=== PATIENT | female | born 1960 | race Caucasian/White ===

== ENCOUNTER → 2022-10-26 13:08 | Outpatient (CLI) | payer OTHER, SELFPAY ==
--- NOTE | 2022-10-26 13:12 | DI.RAD.S_ITS ---
PROCEDURE: XR LUMBAR SPINE MIN 4V INDICATIONS: BACK PAIN TECHNIQUE: 5 views of the lumbar spine acquired, including flexion and extension views. COMPARISON: None. FINDINGS: Bones: There is leftward spinal curvature centered at L3. Five lumbar type vertebral bodies are seen. Trace retrolisthesis of L1 on L2. Grade 1 anterolisthesis, about 8 mm of L5 on S1. Limited evaluation on oblique views, due to overlapping bowel gas. There is a suspected pars defect on L5. Overall vertebral body heights are well maintained. Overall moderate degenerative changes. Soft tissues: Increased colonic stool burden. IMPRESSION: Overall moderate spondylotic changes, with disc space height loss, facet arthropathy, and osteophytes. L5 pars defects and 8 mm of anterolisthesis of L5 on S1. If there is high concern for further derangement, consider MRI evaluation. Dictated by: Ramsey Starks M.D. on 10/26/2022 at 13:35 Approved by: Ramsey Starks M.D. on 10/26/2022 at 13:37
== END ==
PROVIDERS: PCP Registered Nurse; Referring Provider Physical Medicine & Rehabilitation; Visit Provider Physical Medicine & Rehabilitation
DX: M47.816 Spondylosis without myelopathy or radiculopathy, lumbar region (principal); M43.17 Spondylolisthesis, lumbosacral region; M54.9 Dorsalgia, unspecified
CPT/HCPCS: 72110

== ENCOUNTER 2023-03-04 09:47 | Outpatient (CLI) | payer OTHER, SELFPAY ==
[2023-03-04] VITALS (10 sets, daily range): BP systolic 107–163; BP diastolic 53–89; PULSE 65–74; RESP 12–24; TEMP 36.3; O2SAT 96–100
--- NOTE | 2023-03-04 09:48 | DI.RAD.S_ITS ---
PROCEDURE: PAIN L/S TRANSFORAMINAL INJECT INDICATIONS: SPONDYLOSIS COMPARISON: [facility], MR, MR LUMBAR SPINE WITHOUT CONTRAST, 11/18/2022, 18:53. FINDINGS: Fluoroscopic spot filming was performed to verify placement of a spinal needle at the L5-S1 level, as labeled on the films. Appropriate location of the needle tip was confirmed by injection of iodinated contrast. IMPRESSION: No significant intraprocedural abnormality. Dictated by: Darnell Calix M.D. on 03/04/2023 at 13:42 Approved by: Darnell Calix M.D. on 03/04/2023 at 13:42
[2023-03-04] MEDS: MIDAZOLAM 2 MG/2 ML VIAL IV (10:45)
[2023-03-04] MEDS: BETAMETHASONE 30 MG/5 ML MDV 6 MG INJ (10:49)
[2023-03-04] MEDS: IOPAMIDOL 15 ML VIAL 3 ML INJ (10:49)
[2023-03-04] MEDS: DEXAMETHASONE 10 MG/ML VIAL INJ (10:49)
[2023-03-04] MEDS: BUPIVACAINE 0.25% (PF) VIAL 2 ML INJ (10:50)
[2023-03-04] MEDS: fentaNYL 100 MCG/2 ML INJ 50 MCG IV (10:54)
--- NOTE | 2023-03-04 11:06 | P.PCN_ITS ---
Date/Time/Diagnoses Date of procedure: 03/04/23 Time of procedure: 11:07 Pre-procedure diagnosis: 1. FORAMINAL STENOSIS WITH LE SYMPTOMS Post-procedure diagnosis: same Procedure Notes Procedure: 1. FLUOROSCOPICALLY GUIDED CONTRAST CONTROLLED TRANSFORAMINAL EPIDURAL STEROID INJECTION - Left L5/S1 Indications: Manuela is referred by [facility] for treatment of Foraminal Stenosis with Left LE Symptoms Physician: Saurabh Levine Total Fluoroscopy time (seconds): 14 Total sedation minutes: 15 Complications: none Procedure in detail & Post-procedure care: FINDINGS Foraminal Nerve Root Compression secondary to disc disease and facet hypertrophy DESCRIPTION OF PROCEDURE Following review of allergy and review of potential side effects and complications, including, but not necessarily limited to, infection, allergic reaction, local tissue breakdown, stroke, temporary or permanent nerve injury, paralysis, and possible , the patient indicated that the patient understood and agreed to proceed. An informed consent document was signed by the patient, witnessed by a nurse, and placed in the patient's chart. Additionally, other treatment options including medications, modalities, and physical therapy were reviewed with the patient. After review of previous anaesthesic history and IV conscious sedation the patient was deemed safe to proceed with today?s procedure with IV conscious sedation as ASA class II designation. Safety time-out was performed to confirm patient ID, procedure to be performed and site of procedure. IV sedation was accomplished with a combination of 2mg of Versed and 50mcg of Fentanyl was administered by the RN after DO order, titrated to patient comfort during the course of the procedure while the patient remained responsive to all verbal commands In the prone position following sterile prep and drape of the lumbar region, the Left L5/S1 posterior neuroforamen was identified fluoroscopically. The skin was anesthetized via a 25-gauge 1.5-inch needle with 1% lidocaine solution. At this point, a 25-gauge 3.5-inch spinal needle was atraumatically introduced and advanced under fluoroscopic guidance through the posterior Left L5/S1 neur oforamen to approximately the anterior aspect of the canal. Depth was confirmed on lateral view. Following negative aspiration, injection of approximately 1.5 cc of Isovue 200 under live fluoroscopy in the AP view confirmed excellent flow along the nerve root, into the epidural space without vascular or intrathecal uptake observed Radiological data, including multiple fluoroscopic views of the lumbosacral spine, reveal a spinal needle at the Left L5/S1 posterior neuroforamen. Subsequent views show flow of contrast material flowing superiorly and inferiorly along the nerve root confirming epidural flow. Subsequently, a test dose of 1.5 cc of 1% lidocaine solution was administered and patient was observed for two minutes for signs or symptoms of complications, including abdominal pain, shortness of breath, bilateral upper or lower extremity weakness, nausea and vomiting, prior to steroid injection. At this point, a total of 2cc or 10mg of dexamethasone and 6mg of betamethasone was injected without incident. The procedure tolerated the procedure well without signs or symptoms of complications prior to transfer to the recovery area continued monitoring without incident. The patient was then transferred to the recovery area where they were observed for an appropriate time after the injection. The patient reported a VAS score of 7 prior to the procedure and a post-procedure VAS of 1. POST OP INSTRUCTIONS The patient was provided a Pain Log to continue to record their response to the target-specific procedure prior to follow-up visit with their referring physician. Additionally, specific post-injection care instructions and a contact number to our office were provided if concerns arise regarding possible complications associated with the procedure are suspected.
== END 2023-03-04 11:40 | disposition home or self-care (01) ==
PROVIDERS: PCP Registered Nurse; Referring Provider Physical Medicine & Rehabilitation; Visit Provider Physical Medicine & Rehabilitation
DX: M48.07 Spinal stenosis, lumbosacral region (principal); M51.17 Intervertebral disc disorders with radiculopathy, lumbosacral region; M47.27 Other spondylosis with radiculopathy, lumbosacral region
CPT/HCPCS: 64483; 99152; J0702; J1100; J2250; J3010; J3490